=== PATIENT | female | born 1990 | race African-American/Black ===

== ENCOUNTER 2019-05-13 10:43 | Day surgery (SDC) | payer MEDICAID, SELFPAY ==
[2019-05-13 12:18] VITALS: BMI 29.2
[2019-05-13 12:21] LABS: Medtox Reader # READER 4
[2019-05-13 12:22] LABS: Amphetamine Not Detected (NotDetected); Barbiturates Screen Not Detected (NotDetected); Benzodiazepine Screen Not Detected (NotDetected); Cocaine Metabolite Screen Not Detected (NotDetected); Medtox Control Line Valid? VALID (VALID); Methadone Not Detected (NotDetected); Methamphetamine Not Detected (NotDetected); Opiate Screen Not Detected (NotDetected); Oxycodone Screen Not Detected (NotDetected); Phencyclidine (PCP) Not Detected (NotDetected); THC/Cannabinoid Screen Not Detected (NotDetected); Tricyclic Screen Not Detected (NotDetected)
--- NOTE | 2019-05-13 12:51 | ULT ---
Obstetric sonogram HISTORY: Pelvic pain and bleeding. Third trimester gestation. FINDINGS: Multiple transabdominal sonographic views show single intrauterine gestation in breech pres entation. Grade 1 placenta is anterior. Amniotic fluid is within normal limits. No evidence of placenta previa. spine and kidneys are intact as visualized. Amniotic fluid within normal limits. No gross intra cranial abnormalities are apparent. Four-chamber heart shows motion at 153 bpm. Three-vessel cord shows a normal insertion. Measurements are as follows: Biparietal diameter 27 weeks 6 days. Head circumference 28 weeks 0 days. Abdominal circumference 27 weeks 6 days. Femur length 20 weeks 2 days. Estimated date of delivery based on today's sonogram 08/05/2018. IMPRESSION: Single viable intrauterine gestation. Estimated gestational age 28 weeks 0 days.
--- NOTE | 2019-05-13 13:44 | PDOC.LDHP ---
Labor and Delivery H&P Chief complaint: other (spotting) HPI: 29 y/o at "about 26 weeks" presents to triage for spotting since 3am today when wiping. She googled her symptoms and was afraid she had cervical cancer so she came in to be evaluated. Denies heavy VB, LOF, ctx, or other concerns. +FM. Has not had sex recently. Provider: establishing care with Dr. Mary, first appointment May 24. Previously had care in [place]. ROS neg for HEENT, CV, pulm, GI, , neuro, psych, skin, musculoskeletal, or constitutional symptoms other than mentioned above. OB History Details: 3 prior LTCS. First for breech, then repeat x 2. Current complications: none Past Medical History: None Current medications: pre- vitamins Previous surgical history: low tranverse CS (x3) Allergies/Adverse Reactions: Allergies Allergy/AdvReac Type Severity Reaction Status Date / Time No Known Allergies Allergy Verified 05/13/19 11:18 Social history: none - Physical Exam Vital signs reviewed and normal: yes General: NAD, resting Lungs: nonlabored breathing Abdomen: gravid Extremeties: no edema FHT: category 1 (140-150s, mod variability, + accels, ?single variable decel) [place] contractions every: intermittent - Vaginal Exam cm dilated: 0 (no blood noted) Effacement: 0% Station: -3 - OB Labs Blood type: O RH: positive - Assessment 29 y/o at 28w0d by today's ultrasound but 26+ by patient report. Spotting reported but now resolved. No bleeding noted on speculum exam. status reassuring with reactive NST. Normal fluid on US. - Plan -: D/C home with precautions. Advised to have records sent to Dr. Mary's office prior to her appointment so dating can be established/confirmed.
== END 2019-05-13 13:25 | disposition home or self-care (01) ==
LOC: L&D/OP 10:43
PROVIDERS: ATTEND Obstetrics & Gynecology
DX: O26.853 Spotting complicating pregnancy, third trimester (principal); O32.1XX0 Maternal care for breech presentation, not applicable or unspecified; Z3A.28 28 weeks gestation of pregnancy
CPT/HCPCS: 76805; 80306; 99284

== ENCOUNTER 2019-07-23 08:47 | Day surgery (SDC) | payer OTHER ==
[2019-07-23 09:24] VITALS: BP 123/78; TEMP 98.6; BMI 34.9
--- NOTE | 2019-07-23 09:47 | PDOC.FPROB ---
FMR OB H&P: HPI - History of Present Illness Chief Complaint: vaginal pain History of Present Illness: 29 yo @37.6wks with hx of 3 prior CS presents with vaginal pain. Tim LOF, contractions, vaginal discharge, dysuria. Endorses movement. FMR OB H&P: Current - Care : 4 Para: 3003 Gestational age: 37.6 Course/Complications: anterior placenta, no previa FMR OB H&P: History - Past Medical History PMH: none - OB History OB History: 3 prior CS, first for breech presentation, two repeats after that - Surgical History Sx History: 3 CS FMR OB H&P: Medications - Current Home Medications: Medication Instructions Recorded Confirmed Type Pnv#24/Iron Aa Maris/Folic Acid 1 each PO DAILY 05/12/13 07/23/19 History [Complete Multivit Tab] Allergies/Adverse Reactions: Allergies Allergy/AdvReac Type Severity Reaction Status Date / Time No Known Allergies Allergy Verified 05/13/19 11:18 FMR OB H&P: ROS - Review of Systems General: denies: fever/chills, weight/appetite/sleep changes ENT: denies: nasal congestion, rhinorrhea Cardiovascular: denies: chest pain, edema Respiratory: denies: cough, congestion, shortness of breath Gastrointestinal: denies: abdominal pain, cramping, nausea, vomiting, diarrhea Genitourinary (Female): reports: vaginal pain, vaginal pressure. denies: dysuria, vaginal discharge, vaginal bleeding, contractions Neurologic: denies: numbness, syncope Integumentary: denies: itching, rash Psychological: denies: depression, anxiety FMR OB H&P: Vital Signs - Maternal Vital signs: Vital Signs - First Documented Temp Pulse Resp BP Pulse Ox 98.6 F 78 18 123/78 99 07/23/19 08:59 07/23/19 08:59 07/23/19 08:59 07/23/19 08:59 07/23/19 08:59 Selected Entries 07/23/19 08:59 Temperature 98.6 F Pulse Rate 78 Blood Pressure 123/78 [Semi-Fowlers] Respiratory 18 Rate O2 Sat by Pulse 99 Oximetry Oxygen Delivery Room Air Method - Heart Tones Baseline: 150 Variability: moderate Acceleration: present Deceleration: absent (reactive) FMR OB H&P: Physical Exam - Physical Exam General: NAD, awake, alert and oriented HEENT: normocephalic and atraumatic, PERRLA, conjunctiva clear, no scleral icterus Heart: RRR, normal S1/S2, no murmurs/rubs/gallops General: CTAB, no respiratory distress Abdomen: soft, gravid Skin: no rash, good tugor, capillary refill <2 seconds Lymphatic: no unusual bruising or bleeding Psychiatric: intact recent and remote memory - Pelvic Exam SVE: closed thick high, soft FMR OB H&P: A/P - Problem List (1) Third trimester Current Visit: Yes Status: Acute Code(s): Z34.93 - ENCNTR FOR SUPRVSN OF NORMAL PREG, UNSP, THIRD TRIMESTER (2) Vaginal pain Current Visit: Yes Status: Acute Code(s): R10.2 - PELVIC AND PERINEAL PAIN (3) History of 3 sections Current Visit: Yes Status: Acute Code(s): Z98.891 - HISTORY OF UTERINE SCAR FROM PREVIOUS SURGERY (4) Irregular contractions Current Visit: Yes Status: Acute Code(s): O62.2 - OTHER UTERINE INERTIA Discussion: Date/Time: 07/23/19 0946 29 yo @37.6wks here with vaginal pain, irregular contractions, and hx of three prior CS. #sIUP, third trimester -We will observe in L&D for cervical change since she is vargas irregularly. We will also provide PO hydration as the pt has not eaten since last night. Likely DC in 2 hours if no cervical change. She has a scheduled repeat CS on 08/01/19. This H&P was discussed with Dr. Carmona. Addendum - Attending - Attending Attestation Date/Time: 07/23/19 1039 I personally evaluated the patient and discussed the management with Dr. Hdz. SVE by me is closed, thick, high. Will observe and recheck. I agree with the History, Examination, Assessment and Plan documented above.
[2019-07-23] MEDS ORDERED: Lidocaine 1% (PF) 30 ML VIAL ONE (10:51)
[2019-07-23] MEDS ORDERED: hydrALAZINE 20 MG/ML VIAL SLOW IVP PRN (11:18)
[2019-07-23] MEDS ORDERED: Lidocaine 1% (PF) 30 ML VIAL SC PRN (11:25)
[2019-07-23] MEDS ORDERED: Sodium Chloride 0.9% 1,000 ML IV SCH (11:30)
--- NOTE | 2019-07-23 12:00 | PDOC.EVN ---
Event Note - Event Note Event Note: Contractions spaced out after 1L NS IV and PO hydration. Pt nontender over scar and has not been feeling contractions at all. Contractions spaced out to one in every 15 minutes. Pt agreeable to dc with labor precautions given. Addendum - Attending - Attending Attestation Date/Time: 07/23/19 2570 I personally evaluated the patient and discussed the management with Dr. Hdz. Cervix is closed. UCs mild q 15 mins s/p hydration, pt. reports no noticeable ctxs. No tenderness across scar on exam. Home with strict precautions. I agree with the History, Examination, Assessment and Plan documented above.
== END 2019-07-23 12:05 | disposition home health service (06) ==
LOC: L&D/OP 08:47
PROVIDERS: ATTEND Obstetrics & Gynecology
DX: O99.89 Other specified diseases and conditions complicating pregnancy, childbirth and the puerperium (principal); R10.2 Pelvic and perineal pain; O47.1 False labor at or after 37 completed weeks of gestation; Z3A.37 37 weeks gestation of pregnancy
CPT/HCPCS: 96360; 99282; J2001

== ENCOUNTER 2019-08-01 07:30 | Inpatient (IN) | payer OTHER ==
[2019-08-04] MEDS ORDERED: hydrALAZINE 20 MG/ML VIAL SLOW IVP PRN ×2 (11:13→15:36)
[2019-08-04] MEDS ORDERED: Bicitra 30 ML UDCUP PO SCH (11:13)
[2019-08-04] MEDS ORDERED: Ondansetron PF 4 MG/2 ML Vial IVP PRN ×2 (11:13→13:19)
[2019-08-04] MEDS ORDERED: Lactated Ringer's 1,000 ML IV SCH (11:13)
[2019-08-04] MEDS ORDERED: CEFAZOLIN 2 GM in Premix Bag 1 BAG IVPB SCH (11:13)
[2019-08-04] MEDS ORDERED: Promethazine HCl 25 MG/ML VIAL IM PRN ×2 (11:13→13:19)
[2019-08-04 11:27] VITALS: BMI 35.3
[2019-08-04 11:48] LABS: Hemoglobin 10.1 g/dL (12.0-16.0); Mean Corpuscular HGB CONC 34.2 g/dL (32.0-36.0); Mean Corpuscular Volume 84.9 fL (78.0-98.0); Mean Platelet Volume 9.6 fL (7.4-10.4); Platelet Count 154 thou/uL (130-400); RBC Distribution Width 12.2 % (11.5-14.5); Red Blood Cell (RBC) Count 3.48 mill/uL (4.20-5.40); White Blood Cell (WBC) Count 8.5 thou/uL (4.8-10.8)
[2019-08-04] MEDS ORDERED: ePHEDrine/0.9% NaCl/PF SYRINGE 50 mg/10 ml ONE (11:54)
[2019-08-04] MEDS ORDERED: Midazolam HCl 2 mg/2 ml Vial ONE (11:54)
[2019-08-04] MEDS ORDERED: Oxytocin 10 UNITS/ML VIAL ONE (11:54)
[2019-08-04] MEDS ORDERED: Ondansetron PF 4 MG/2 ML Vial ONE ×2 (11:54→13:03)
[2019-08-04] MEDS ORDERED: MORPHINE 5 MG/10 ML PF VIAL ONE (11:57)
[2019-08-04 12:57] LABS: HBSAg Index 0.14 S/CO (0-0.99); Hep B Surf Ag Non-Reactive S/CO (NonReactive); Syphilis Antibody Nonreactive (Nonreactive); Syphilis Antibody Index 0.02 S/CO (<1.00 Non-Reactive)
[2019-08-04] MEDS ORDERED: ePHEDrine 50 MG/ML VIAL ONE (13:03)
--- NOTE | 2019-08-04 13:15 | PDOC.OPDEL ---
OB Operative/Delivery Note Delivery Dr/Surgeon: Tyra Assist: Wilfred Pre-Delivery Diagnosis: scheduled section Procedure/Post Delivery Dx: repeat low transverse CS Weeks gestation: 39 Anesthesia: spinal - Findings A Sex: female Weight: 7 lb 10 oz - 1 min: 9 - 5 min: 9 - Additional Findings/Plan Placenta delivered: manual removal findings: low transverse hysterotomy without extension (Dense lower uterine segment adhesions to rectus muscles. Uterus fixed in pelvis. Clear urine in dumont...)
[2019-08-04] MEDS ORDERED: Ondansetron HCl/PF 4 MG/2 ML Vial IVP PRN (13:18)
[2019-08-04] MEDS ORDERED: HYDROmorphone 2 MG/ML VIAL SLOW IVP PRN (13:18)
[2019-08-04] MEDS ORDERED: L&D-Morphine 4 MG/ML VIAL SLOW IVP PRN (13:18)
[2019-08-04] MEDS ORDERED: Meperidine HCl/PF 25 MG/ML VIAL SLOW IVP PRN (13:18)
[2019-08-04] MEDS ORDERED: Promethazine HCl 25 MG SUPP PR PRN (13:19)
[2019-08-04] MEDS ORDERED: Naloxone HCl 0.4 mg/ml Vial IVP PRN ×2 (13:19)
[2019-08-04] MEDS ORDERED: diphenhydrAMINE 50 MG/ML VIAL IVP PRN (13:19)
[2019-08-04] MEDS ORDERED: Naloxone HCl 0.4 mg/ml Vial IV PRN (13:19)
[2019-08-04] MEDS ORDERED: Ketorolac Tromethamine 30 MG/ML VIAL IVP SCH (13:30)
[2019-08-04] MEDS ORDERED: Communication Order-Pharmacy FS SCH (13:30)
[2019-08-04] MEDS ORDERED: diphenhydrAMINE 25 MG CAP PO PRN (15:36)
[2019-08-04] MEDS ORDERED: Lanolin Ointment 7 GM TUBE TOP PRN (15:36)
--- NOTE | 2019-08-04 20:37 | OP ---
DATE OF PROCEDURE: 08/04/2019 PREOPERATIVE DIAGNOSES: 1. A 29-year-old female, G4, P3, at 39 to 40 weeks. 2. Prior section x3 for repeat . POSTOPERATIVE DIAGNOSES: 1. A 29-year-old female, G4, P3, at 39 to 40 weeks. 2. Prior section x3 for repeat , delivered. BRIDGE WELDER SURGEON: Maria Fernanda Hardin DO ANESTHESIA: Spinal block. ESTIMATED BLOOD LOSS: 500 mL. COMPLICATIONS: None. ANTIBIOTICS: 2 g Ancef to OR. FINDINGS: 1. Vigorous female , Apgars 9 and 9. weight 7 pounds 10 ounces. Clear amniotic fluid. 2. Dense lower uterine segment adhesions of the uterus to the abdominal rectus muscles, status post adhesiolysis. 3. Essentially uterus was fixed in the upper abdomen due to . 4. Clear urine present in Case catheter postprocedure. COUNTS: Correct x2. DISPOSITION: Recovery room, stable. DESCRIPTION OF PROCEDURE: The patient previously received informed consent in regard to surgery. She was taken back to the operating room, where she received a spinal block without complications and placed in supine position, prepped and draped in usual sterile fashion. Case catheter had been placed. A Pfannenstiel incision was made through the previous scar site, it was carried down the fascia. Fascia was nicked in midline. Fascial incision was extended bilaterally using curved Pina scissors. The rectus fascia was dissected superiorly and inferiorly off the rectus muscle bellies. There were dense adhesions noted as we moved upward from the lower uterine segment. Essentially, the uterus was plicated and abutting the rectus muscles. We dissected the plane off the rectus muscles bilaterally by grasping identifiable rectus muscle with Allis clamps and dissecting planes bilaterally and creating a window large enough to deliver the baby through. The bladder was noted to be inferior to this, and we stayed above this area protecting the bladder. We then entered into the myometrium. This was extended via finger fractionation in hysterotomy site, and the amniotic bag was ruptured. The baby was delivered in vertex presentation. Mouth and nares of the were bulb suctioned on the abdomen. The cord was doubly clamped and cut, and baby was handed to pediatric team in attendance. Usual cord blood was obtained, and placenta was manually removed. The uterus was fixed in the abdomen; therefore, the uterus remained in situ and we curetted the uterus of any remaining placental fragments with a dry laparotomy sponge. The edges of the hysterotomy incision were grasped inferiorly and superiorly with ring forceps. The uterus was closed in double-layer closure with #1 Monocryl suture. Hemostasis was confirmed. Additional [id number] stitch of 2-0 chromic was placed for added hemostasis in the midportion of the hysterotomy site. The pelvis was irrigated and suctioned. Hemostasis again confirmed. The rectus muscle bellies were noted to be hemostatic, where they had been dissected. The rectus fascia was then closed in a running continuous fashion x2. The subcutaneous tissue was noted to be hemostatic prior to skin closure with flower. The surgery was terminated. No anesthetic or surgical complications occurred. Job ID: [id number]
[2019-08-05] MEDS: Ketorolac Tromethamine 30 MG/ML VIAL IVP PRN ×2 (00:05→08:30)
[2019-08-05] MEDS: Docusate Calcium (SURFAK) 240 MG CAP PO SCH ×3 (00:06→21:49)
[2019-08-05] MEDS: Ferrous Sulfate 325 MG TAB PO SCH ×3 (00:06→21:50)
[2019-08-05 05:15] LABS: Hemoglobin 8.3 g/dL (12.0-16.0); Mean Corpuscular HGB CONC 33.8 g/dL (32.0-36.0); Mean Corpuscular Hemoglobin 29.1 pg (27.0-31.0); Mean Corpuscular Volume 86.1 fL (78.0-98.0); Mean Platelet Volume 8.9 fL (7.4-10.4); Platelet Count 124 thou/uL (130-400); RBC Distribution Width 12.2 % (11.5-14.5); Red Blood Cell (RBC) Count 2.86 mill/uL (4.20-5.40); White Blood Cell (WBC) Count 7.5 thou/uL (4.8-10.8)
[2019-08-05] MEDS ORDERED: Sodium Chloride 0.9% 10 ML ONE (08:26)
--- NOTE | 2019-08-05 08:58 | PDOC.PP ---
Post Progress Note Post Day #: 1 PO intake tolerated: yes Flatus: yes Ambulation: yes Vital Signs (12 hours) Temp Pulse Resp BP Pulse Ox 08/05/19 08:01 98.4 F 61 20 120/70 95 08/05/19 04:00 98.2 F 55 L 17 112/65 Weight Weight 181 lb Result Diagrams: 08/05/19 04:58 Additional Labs: Post Labs Blood Type O POSITIVE 08/04/19 11:32 Hep Bs Antigen Non-Reactive S/CO (NonReactive) 08/04/19 11:47 - Assessment/Plan Post op day 1 from repeat c/s #4. Hemodynamically stable. asymptomatic chronic and acute blood loss anemia. Post operative care.. Possible discharge 08/06. Yolis out in office post op day 7.
[2019-08-05] MEDS ORDERED: Adacel (T-DAP) 0.5 ML SYRINGE IM ONE (09:00)
[2019-08-05] MEDS: Prenatal Vitamin 1 TAB PO SCH (09:24)
[2019-08-05] MEDS: Ibuprofen 800 MG TAB PO SCH ×2 (14:52→21:49)
[2019-08-05] MEDS: Simethicone Chewable 80 MG TAB PO PRN (22:00)
[2019-08-05] MEDS: traMADol HCl 50 MG TAB PO PRN (22:00)
[2019-08-06] MEDS: Ibuprofen 800 MG TAB PO SCH ×3 (06:04→22:15)
--- NOTE | 2019-08-06 06:38 | PDOC.PP ---
Post Progress Note Post Day #: 2 Subjective: Patient doing well. No significant overnight events. Patient tolerating PO. She is ambulating, but with pain. She states that the recovery is more difficult this time around but understands that is all related to the number of prior C/S' s she has had. PO intake tolerated: yes Flatus: yes Ambulation: yes Vital Signs (12 hours) Temp Pulse Resp BP Pulse Ox 08/05/19 20:00 94 L 08/05/19 19:19 98.6 F 89 16 134/85 94 L Weight Weight 82.1 kg - Physical Examination General: NAD Cardiovascular: RRR Respiratory: non-labored breathing Abdominal: + bowel sounds, lochia (minimal), no distention, appropriately TTP Fundus firm & at: below umbilicus Extremities: negative homans (B) Skin: CS incision dry & intact, no rash Neurological: no gross focal deficits Psychiatric: A&Ox3, normal affect Result Diagrams: 08/05/19 04:58 Additional Labs: Post Labs Blood Type O POSITIVE 08/04/19 11:32 Hep Bs Antigen Non-Reactive S/CO (NonReactive) 08/04/19 11:47 (1) delivery delivered Code(s): O82 - ENCOUNTER FOR DELIVERY WITHOUT INDICATION Status: Acute (2) Term of female Code(s): Z37.0 - SINGLE LIVE Status: Acute - Assessment/Plan Routine PP care - POD #2, s/p repeat C/S #4 - Routine post-op care - Rh pos - Will need flower out in office on post op day #7 - Patient not ambulating well without significant amount of pain - Encouraged ambulation; will provide patient with abdominal binder Dispo: Optimize pain control, encourage ambulation. Plan for d/c home tomorrow.
[2019-08-06] MEDS: Simethicone Chewable 80 MG TAB PO PRN (08:42)
[2019-08-06] MEDS: Ferrous Sulfate 325 MG TAB PO SCH ×2 (08:42→22:15)
[2019-08-06] MEDS: Prenatal Vitamin 1 TAB PO SCH (08:42)
[2019-08-06] MEDS: Docusate Calcium (SURFAK) 240 MG CAP PO SCH ×2 (08:42→22:15)
[2019-08-06] MEDS: traMADol HCl 50 MG TAB PO PRN ×3 (08:43→22:15)
--- NOTE | 2019-08-07 01:38 | PDOC.PP ---
Post Progress Note Post Day #: 3 Subjective: No overnight events. Feeling well. Reports some pain this morning but just received pain medication. Ambulating and tolerating diet. PO intake tolerated: yes Flatus: yes Ambulation: yes Vital Signs (12 hours) Temp Pulse Resp BP Pulse Ox 08/06/19 21:00 97.9 F 73 20 116/75 99 Weight Weight 82.1 kg - Physical Examination General: NAD Cardiovascular: no m/r/g, RRR Respiratory: clear to auscultation bilaterally, non-labored breathing Abdominal: + bowel sounds, lochia (minimal), appropriately TTP Fundus firm & at: below umbilicus Skin: CS incision dry & intact Neurological: no gross focal deficits Psychiatric: A&Ox3, normal affect Result Diagrams: 08/05/19 04:58 Additional Labs: Post Labs Blood Type O POSITIVE 08/04/19 11:32 Hep Bs Antigen Non-Reactive S/CO (NonReactive) 08/04/19 11:47 - Assessment/Plan Term , delivered - POD #3, s/p repeat C/S #4 - Routine post-op care - Will need flower out in office on post op day #7 - Patient not ambulating well without significant amount of pain - Encouraged ambulation; pt has abdominal binder Marta Lechuga MD PGY-2 Pt was discussed with Dr Carmona who agrees with the above documentation and plan Addendum - Attending - Attending Attestation Date/Time: 08/07/19 8613 I personally evaluated the patient and discussed the management with Dr. Lechuga. I agree with the Assessment and Plan documented above.
[2019-08-07] MEDS: Ibuprofen 800 MG TAB PO SCH ×2 (05:36→13:40)
[2019-08-07] MEDS: traMADol HCl 50 MG TAB PO PRN (08:07)
[2019-08-07] MEDS: Prenatal Vitamin 1 TAB PO SCH (08:08)
[2019-08-07] MEDS: Ferrous Sulfate 325 MG TAB PO SCH (08:09)
[2019-08-07] MEDS: Docusate Calcium (SURFAK) 240 MG CAP PO SCH (08:09)
[2019-08-07] MEDS: Simethicone Chewable 80 MG TAB PO PRN (13:40)
[2019-08-07] MEDS ORDERED: Bisacodyl 10 MG SUPP PR SCH (13:45)
[2019-08-07 18:22] VITALS: BP 134/88; TEMP 98.2
== END 2019-08-07 17:30 | disposition home or self-care (01) | DRG 787 ==
LOC: L&D 08-04 10:28 → 3SW 08-04 15:16
PROVIDERS: ADMIT Obstetrics & Gynecology; ATTEND Obstetrics & Gynecology
PROC: 10D00Z1 Extraction of Products of Conception, Low, Open Approach (ICD-10-PCS; principal; 2019-08-04)
DX: O34.211 Maternal care for low transverse scar from previous cesarean delivery (principal); D62 Acute posthemorrhagic anemia; Z67.40 Type O blood, Rh positive; Z3A.39 39 weeks gestation of pregnancy; Z37.0 Single live birth; O90.81 Anemia of the puerperium
CPT/HCPCS: 36415; 51702; 85027; 86780; 86850; 86900; 86901; 87340; J0690; J1200; J1885; J2250; J2274; J2405; J2590

== ENCOUNTER 2020-08-03 16:03 | Emergency (ER) | payer OTHER ==
[2020-08-04 15:40] LABS: SARS-CoV-2 MS2 Positive; SARS-CoV-2 N Gene Negative; SARS-CoV-2 S Gene Negative; SARS-CoV-2 by NAA Not Detected (NotDetected); SARS-CoV-2 orf1ab Negative
== END 2020-08-03 16:50 | disposition home or self-care (01) ==
LOC: ERS 16:03
DX: R06.02 Shortness of breath (principal); R05 Cough; R53.83 Other fatigue; Z20.828 Contact with and (suspected) exposure to other viral communicable diseases
CPT/HCPCS: 87635; 99283; U0003